=== PATIENT | male | born 1965 | race Caucasian/White ===

== ENCOUNTER 2017-02-11 21:28 | Inpatient (IN) | payer BC ==
--- NOTE | ~2017-02-11 | PRECARD ---
H&P [facility] [address] [place]. [address] NAME: KAVITA ORANTES : 61 STATUS : ADM IN [facility]#: [id number] AGE: 51 ADM/REG DATE : 02/11/17 MR#: [id number] REPORT SERV DATE: 02/11/17 DICTATED BY: MELINDA JOYNER DATE: 02/11/17 REPORT STATUS : Draft TRANSCRIBED BY: VIVIANE DATE: 02/11/17 DATE OF ADMISSION: 02/11/2017 CHIEF COMPLAINT: Chest pain. REASON FOR ADMISSION: Myocardial infarction. SOURCE: The patient and chart. HISTORY OF PRESENT ILLNESS: Mr. Orantse is a very pleasant 51-year-old white man with no significant past cardiac history. He was in his usual state of health until this evening about 8:15 p.m. when he was sitting at home and developed chest pain up to 9/10 in severity, described as substernal with a tingling in his left arm. It was associated with diaphoresis, but no nausea, vomiting, or dyspnea. He never had it before. EMS was summoned. EKG revealed ST-segment elevation inferiorly. Code STEMI was called. He was brought to the ER and the cardiac catheterization laboratory. On arrival, he was still having chest pain. REVIEW OF SYSTEMS: All other systems are negative. ALLERGIES: NO KNOWN DRUG ALLERGIES. MEDICATIONS: Medications at home included a heartburn pill. CARDIAC RISK FACTORS: Tobacco. Denies diabetes, hypertension, cholesterol, or family history. PAST MEDICAL HISTORY: No prior cardiac problems. No strokes. Asthma. Status post vasectomy. Hernia, but no surgery yet. SOCIAL HISTORY: The patient lives in [place], [place]. He is . He has two children, alive and well. He works in car sales. FAMILY HISTORY: Negative for coronary artery disease at young age. PHYSICAL EXAMINATION: GENERAL: He is well-developed, well-nourished middle-aged white man, in no acute distress. HEENT: Anicteric. No xanthelasma, lips without cyanosis. NECK: No JVD, no thyromegaly, carotids 2+ and symmetrical without bruits. LUNGS: Clear to auscultation. No use of accessory muscles. COR: Regular rate and rhythm. Normal S1 and S2. No S3 or S4. No murmurs or rubs. PMI left 5th ICS, MCL. ABD: Positive bowel sounds, soft, non-tender. No bruits, no hepatomegaly. MS: No kyphosis. Normal muscle tone. EXT: Femoral and pedal pulses 2+ and symmetrical. No clubbing, cyanosis, or edema. No H&P PRE [facility] [address] [place]. [address] NAME: KAVITA ORANTES : 61 STATUS : ADM IN PAT#: [id number] AGE: 51 ADM/REG DATE : 02/11/17 MR#: [id number] REPORT SERV DATE: 02/11/17 DICTATED BY: MELINDA JOYNER DATE: 02/11/17 REPORT STATUS : Draft TRANSCRIBED BY: VIVIANE DATE: 02/11/17 varicosities. SKIN: No venous stasis changes. NEURO: Alert and oriented x 3. EKG: Reveals sinus rhythm, acute inferior myocardial infarction. LABORATORY DATA: Labs are not yet available. IMPRESSION: 1. Acute inferior myocardial infarction onset 8:15 p.m. today by history, Killip class 1. 2. Tobacco use. 3. Unknown lipid status. RECOMMENDATIONS: 1. Emergent cardiac catheterization, possible angioplasty already done. See report. 2. Aspirin and Brilinta at least one year and aspirin indefinitely. 3. Check fasting lipid profile. 4. Empiric statin therapy. 5. Beta-blockers and CRISTA inhibitors later. 6. Cardiac rehabilitation. 7. Consider further intervention of the LAD at a later time. DERIK/VIVIANE Melinda Joyner M.D. / [id number] CC: Melinda Joyner M.D.
[~2017-02-11 21:28] MED LIST: ALLEGRA180 PO; DULERA 100 MCG/13 GM INH; PRILO PO
[2017-02-11] MEDS ORDERED: PREV15 PO (21:36)
[2017-02-11 21:45] LABS: BASOPHILS 0.3 %; BASOPHILS ABSOLUTE 0.03 10/3/uL (0.0-0.16); EOSINOPHILS 4.1 %; HEMOGLOBIN 15.4 g/dL (13.6-17.8); IMMATURE GRANULOCYTES 0.2 %; IMMATURE GRANULOCYTES ABSOLUTE 0.02 10/3/uL (0.0-0.11); LYMPHOCYTES 31.8 %; LYMPHOCYTES ABSOLUTE 3.09 10/3/uL (0.67-4.30); MEAN CORPUSCULAR HEMOGLOB 31.5 pg (26.0-34.0); MEAN PLATELET VOLUME 10.1 fL (9.2-13.0); MONOCYTES 6.9 %; MONOCYTES ABSOLUTE 0.67 10/3/uL (0.21-1.20); NEUTROPHILS 56.7 %; PLATELET COUNT 250 10/3/uL (150-400); RBC DISTRIBUTION WIDTH 12.5 % (12.0-16.0); RED CELL COUNT 4.89 10/6/uL (4.7-6.1)
[2017-02-11 21:46] LABS: MANUAL DIFF NO %; WHITE BLOOD CELLS 9.7 10/3/uL (4.5-10.5)
[2017-02-11 21:52] LABS: INTERNATIONAL NORMAL RATI 1.2 UNITS (-); PROTIME (NOT ORD) 15.2 SEC (12.0-14.5)
[2017-02-11 22:01] LABS: BUN (BLOOD UREA NITROGEN) 15 MG/DL (6-23); CHLORIDE, SERUM 106 MMOL/L (96-112); CO2 (CARBON DIOXIDE) 27 MMOL/L (24-34); GFR AFRICAN AMERICAN 72 ML/MIN (>=60); GFR NON AFRICAN AMERICAN 62 ML/MIN (>=60); GLUCOSE, SERUM 110 MG/DL (60-99); POTASSIUM, SERUM 3.7 MMOL/L (3.5-5.3); SODIUM, SERUM 142 MMOL/L (135-148)
[2017-02-11 22:03] LABS: CALCIUM, SERUM 8.5 MG/DL (8.5-10.4)
[2017-02-11 22:05] LABS: PARTIAL THROMBO TIME > 150.0 SEC (22.5-37.2)
[2017-02-11 22:06] LABS: CHEST PAIN PROFILE TAT 0 Hrs 26 Mins; TROPONIN I 0.05 NG/ML (<0.05)
[2017-02-12 02:38] LABS: CK-MB 252.4 NG/ML
[2017-02-12 02:39] LABS: CKMB INDEX (NOT ORD) 10.7
[2017-02-12 05:53] LABS: BASOPHILS 0.2 %; BASOPHILS ABSOLUTE 0.02 10/3/uL (0.0-0.16); EOSINOPHILS 0.8 %; EOSINOPHILS ABSOLUTE 0.08 10/3/uL (0.0-0.53); HEMATOCRIT 42.9 % (40.0-51.0); HEMOGLOBIN 15.1 g/dL (13.6-17.8); IMMATURE GRANULOCYTES 0.2 %; IMMATURE GRANULOCYTES ABSOLUTE 0.02 10/3/uL (0.0-0.11); LYMPHOCYTES 18.9 %; LYMPHOCYTES ABSOLUTE 1.97 10/3/uL (0.67-4.30); MEAN CORPUS HGB CONC 35.2 g/dL (32.0-36.0); MEAN CORPUSCULAR HEMOGLOB 31.8 pg (26.0-34.0); MEAN CORPUSCULAR VOLUME 90.3 fL (80-100); MEAN PLATELET VOLUME 10.4 fL (9.2-13.0); MONOCYTES 7.4 %; MONOCYTES ABSOLUTE 0.77 10/3/uL (0.21-1.20); NEUTROPHILS 72.5 %; NEUTROPHILS ABSOLUTE 7.55 10/3/uL (2.02-8.40); PLATELET COUNT 224 10/3/uL (150-400); RBC DISTRIBUTION WIDTH 12.5 % (12.0-16.0); RED CELL COUNT 4.75 10/6/uL (4.7-6.1); WHITE BLOOD CELLS 10.4 10/3/uL (4.5-10.5)
[2017-02-12 05:54] LABS: MANUAL DIFF NO %
[2017-02-12 06:13] LABS: CALCIUM, SERUM 8.4 MG/DL (8.5-10.4); CHLORIDE, SERUM 107 MMOL/L (96-112); CHOL/HDL RATIO(NOT ORDER) 4.9 (0-5); CHOLESTEROL 157 MG/DL (< 200); CO2 (CARBON DIOXIDE) 24 MMOL/L (24-34); CREATININE 1.04 MG/DL (0.70-1.30); GFR AFRICAN AMERICAN 95 ML/MIN (>=60); GFR NON AFRICAN AMERICAN 82 ML/MIN (>=60); GLUCOSE, SERUM 111 MG/DL (60-99); HDL CHOLESTEROL 32 MG/DL (> 39); LDL CHOLESTEROL 93 MG/DL (< 130); NON-HDL CHOLESTEROL 125 MG/DL (< 160); POTASSIUM, SERUM 4.3 MMOL/L (3.5-5.3); SODIUM, SERUM 140 MMOL/L (135-148); TRIGLYCERIDE 164 MG/DL (< 150)
[2017-02-12 06:14] LABS: BUN (BLOOD UREA NITROGEN) 11 MG/DL (6-23)
[2017-02-12 09:44] LABS: CK-MB 227.1 NG/ML
[2017-02-12 18:45] LABS: CK-MB 114.9 NG/ML
[2017-02-12 19:02] LABS: CKMB INDEX (NOT ORD) 9.6
[2017-02-13 04:09] LABS: BUN (BLOOD UREA NITROGEN) 9 MG/DL (6-23); CALCIUM, SERUM 8.6 MG/DL (8.5-10.4); CHLORIDE, SERUM 107 MMOL/L (96-112); CO2 (CARBON DIOXIDE) 22 MMOL/L (24-34); CPK (IF ELEVATED MB BANDS) 684 U/L (0-200); CREATININE 1.01 MG/DL (0.70-1.30); GFR AFRICAN AMERICAN 98 ML/MIN (>=60); GFR NON AFRICAN AMERICAN 85 ML/MIN (>=60); GLUCOSE, SERUM 111 MG/DL (60-99); SODIUM, SERUM 139 MMOL/L (135-148)
[2017-02-13 04:30] LABS: CK-MB 55.8 NG/ML
[2017-02-13 04:32] LABS: CKMB INDEX (NOT ORD) 8.2
[2017-02-13 06:07] LABS: PHOSPHORUS, SERUM 2.4 MG/DL (2.5-4.5)
[2017-02-13] MEDS ORDERED: ASAB PO (10:30)
[2017-02-13] MEDS ORDERED: PRIN5 PO (10:31)
[2017-02-13] MEDS ORDERED: LIPITOR40 PO (10:31)
[2017-02-13] MEDS ORDERED: LOP25 PO (10:32)
[2017-02-13] MEDS ORDERED: BRILINTA90 MG PO (10:32)
[2017-02-13] MEDS ORDERED: NTG150 SL (10:34)
[2017-03-02] MEDS ORDERED: PRILO PO (11:00)
[2017-03-02] MEDS ORDERED: [UNRECOGNIZED DRUG - OTHER] PO (11:00)
[2017-03-06] MEDS ORDERED: HABIT21 TOP (09:27)
== END 2017-02-13 12:14 | disposition home health service (06) | DRG 247 ==
LOC: CORLMH 21:28 → SSU2 21:39 → CCU 23:25
PROVIDERS: Emergency Medicine; Internal Medicine Cardiovascular Disease
PROC: 027036Z Dilation of Coronary Artery, One Artery with Three Drug-eluting Intraluminal Devices, Percutaneous Approach (ICD-10-PCS; principal; 2017-02-11)
PROC: 4A023N7 Measurement of Cardiac Sampling and Pressure, Left Heart, Percutaneous Approach (ICD-10-PCS; 2017-02-11)
PROC: B2151ZZ Fluoroscopy of Left Heart using Low Osmolar Contrast (ICD-10-PCS; 2017-02-11)
PROC: B2111ZZ Fluoroscopy of Multiple Coronary Arteries using Low Osmolar Contrast (ICD-10-PCS; 2017-02-11)
DX: I21.19 ST elevation (STEMI) myocardial infarction involving other coronary artery of inferior wall (principal); F17.210 Nicotine dependence, cigarettes, uncomplicated; I25.10 Atherosclerotic heart disease of native coronary artery without angina pectoris; K46.9 Unspecified abdominal hernia without obstruction or gangrene; Z98.890 Other specified postprocedural states
CPT/HCPCS: 71010; 80048; 80061; 82550; 82553; 83735; 84100; 84484; 85025; 85347; 85610; 85730; 87641; 93005; 93458; 99152; 99153; 99285; A9270-GY; C1725; C1769; C1874; C1887; C1894; C9606; J2250; J2405; J2550; J3010; Q9967